=== PATIENT | male | born 1945 | race Caucasian/White ===

== ENCOUNTER 2016-12-06 06:58 | Inpatient (IN) | payer OTHER ==
[~2016-12-06 06:58] MED LIST: ACETAMINOPHEN 325 MG TAB PO ONE; CEFAZOLIN 2 GM/DEXTR 100 ML IV ONE; CHLORHEXIDINE GLUC HIBICLENS 118 ML BTL TP ONE; DEXAMETHASONE 10 MG/ML VIAL IVP ONE; FAMOTIDINE 20 MG TAB PO ONE; ROPI/epiNEPH/KETOROLAC JOINT COCKTAIL IU ONE; TRANEXAMIC ACID 3,000 MG in NS 50 ML IRR ONE
[2016-12-06] MEDS ORDERED: LIDOCAINE 1% 2 ML INJ ONE (07:21)
[2016-12-06] MEDS ORDERED: TRANEXAMIC ACID 3,000 MG/50 ML BAG IRR ONE (08:00)
[2016-12-06] MEDS ORDERED: DEXAMETHASONE 4 MG/ML VIAL ONE (08:00)
[2016-12-06] MEDS ORDERED: DEXAMETHASONE 4 MG/ML VIAL IVP ONE (08:00)
[2016-12-06] MEDS ORDERED: VANCOMYCIN 1 GM VIAL IV ONE (08:00)
[2016-12-06] MEDS ORDERED: SKIN ADHESIVE (DERMABOND) 1 EACH TP ONE (08:00)
[2016-12-06] MEDS ORDERED: LR 1,000 ML IV ONE (08:11)
[2016-12-06] MEDS ORDERED: LIDOCAINE 1% 5 ML SDV ID PRN (08:11)
[2016-12-06] MEDS ORDERED: MIDAZOLAM 2 MG/2 ML VIAL ONE (09:00)
[2016-12-06] MEDS ORDERED: PROPOFOL/EMULSION 500 MG/50 ML BOTTLE IV ONE (09:06)
[2016-12-06] MEDS ORDERED: LIDOCAINE 2% 5 ML SDV ONE (09:07)
[2016-12-06] MEDS ORDERED: PHARMACY PAIN CONSULT 1 EA MISC PRN (09:21)
[2016-12-06] MEDS ORDERED: POLYETHYLENE GLYCOL 3350 17 GM PKT PO PRN (09:21)
[2016-12-06] MEDS ORDERED: TEMAZEPAM 15 MG CAP PO PRN (09:21)
[2016-12-06] MEDS ORDERED: ONDANSETRON 4 MG/2 ML VIAL IVP PRN (09:21)
[2016-12-06] MEDS ORDERED: LACTULOSE 20 GM/30 ML UDCUP PO PRN (09:21)
[2016-12-06] MEDS ORDERED: MAGNESIUM HYDROXIDE 30 ML UDCUP PO PRN (09:21)
[2016-12-06] MEDS ORDERED: BISACODYL 10 MG SUPP PR PRN (09:21)
[2016-12-06] MEDS ORDERED: ONDANSETRON DISINTEGRATING 4 MG TAB PO PRN (09:21)
[2016-12-06] MEDS ORDERED: METOCLOPRAMIDE 10 MG/2 ML VIAL IVP PRN (09:21)
[2016-12-06] MEDS ORDERED: CYCLOBENZAPRINE 10 MG TAB PO PRN (09:21)
[2016-12-06] MEDS ORDERED: PROMETHAZINE HCL 25 MG SUPPR PR PRN (09:21)
[2016-12-06] MEDS ORDERED: DIPHENOXYLATE/ATROPINE LOMOTIL 1 TAB PO PRN (09:21)
[2016-12-06] MEDS ORDERED: diphenhydrAMINE 25 MG CAP PO PRN (09:21)
[2016-12-06] MEDS ORDERED: PREDNISOLONE ACET 0.12% EACHEYE PRN (09:23)
[2016-12-06] MEDS ORDERED: LORazepam 1 MG TAB PO PRN (09:23)
[2016-12-06] MEDS ORDERED: Fluticasone Nasal [Flonase Nasal Spray] 1 SPRAYS EACHNARE PRN (09:23)
[2016-12-06] MEDS ORDERED: LR 1,000 ML IV SCH (09:30)
[2016-12-06] MEDS ORDERED: ROPIVACAINE HCL 150 MG/30 ML INJ ONE (09:51)
--- NOTE | 2016-12-06 10:29 | POSTOPPROG ---
Post Op Note Date of Operation: 12/06/16 Surgeon: Andrew Murray Japanese Interpreter: ivanna murray Anesthesiologist: dr. whaley Anesthesia: Spinal, Other (Specify) (adductor canal block) Pre-op Diagnosis: right knee OA Post-op Diagnosis: same Indication: right knee pain due to OA that failed conservative measures Procedure: R TKA Findings: severe knee OA Inf/Abcess present in the surg proc area at time of surgery?: No EBL: 50-100
[2016-12-06] MEDS: ACETAMINOPHEN 325 MG TAB PO SCH ×3 (14:44→23:50)
[2016-12-06] MEDS: oxyCODONE IR 5 MG TAB PO PRN (15:54)
[2016-12-06] MEDS: ceFAZolin 2 GM/DEXTROSE 100 ML IV SCH ×2 (16:39→23:50)
[2016-12-06] MEDS: metFORMIN HCL 500 MG TAB PO SCH (18:32)
[2016-12-06] MEDS: FAMOTIDINE 20 MG TAB PO SCH (20:28)
[2016-12-06] MEDS: SENNOSIDES/DOCUSATE SODIUM TAB PO SCH (20:28)
[2016-12-06] MEDS: NORTRIPTYLINE HCL 25 MG CAP PO SCH (20:28)
[2016-12-06] MEDS: ASPIRIN 325 MG TAB PO SCH (20:28)
[2016-12-06] MEDS ORDERED: ATORVASTATIN CALCIUM 40 MG TAB PO SCH (21:00)
[2016-12-07] MEDS: ACETAMINOPHEN 325 MG TAB PO SCH (05:04)
[2016-12-07] MEDS: oxyCODONE IR 5 MG TAB PO PRN ×3 (05:04→12:05)
[2016-12-07 05:36] LABS: HEMATOCRIT 36.1 % (40.0-51.0); HEMOGLOBIN 12.1 g/dL (13.7-17.5)
[2016-12-07 07:20] VITALS: BP 128/72; PULSE 80; RESP 14; TEMP 97.9; O2SAT 96
[2016-12-07] MEDS: SENNOSIDES/DOCUSATE SODIUM TAB PO SCH (08:00)
[2016-12-07] MEDS: ASPIRIN 325 MG TAB PO SCH (08:01)
[2016-12-07] MEDS: FAMOTIDINE 20 MG TAB PO SCH (08:01)
[2016-12-07] MEDS: metFORMIN HCL 500 MG TAB PO SCH (08:01)
[2016-12-07] MEDS ORDERED: PANTOPRAZOLE SODIUM 40 MG TAB PO SCH (09:00)
[2016-12-07] MEDS: NORTRIPTYLINE HCL 25 MG CAP PO SCH (09:11)
--- NOTE | 2016-12-07 09:57 | SOAPPROG ---
SOAP Progress Note Assessment/Plan: Assessment: is doing well POD 1 s/p R TKA 1. Pain management: pain is well controlled on oral pain meds 2. Anemia: level is expected initially postop. Asymptomatic, continue to monitor 3. VTE prophylaxis: Recommend aspirin daily. Cont SCDs and TEDs 4. D/c planning: d/c to home today most likely pending release from PT. Plan: 12/07/16 09:56 Objective: Vital Signs Temp Pulse Resp BP Pulse Ox 36.6 C 80 14 128/72 H 96 12/07/16 07:18 12/07/16 07:18 12/07/16 07:18 12/07/16 07:18 12/07/16 07:18 Laboratory Results 12/07/16 05:02 12/06/16 12/07/16 12/08/16 05:59 05:59 05:59 Intake Total 1675 Output Total 780 Balance 895 ICD10 Worksheet Patient Problems: Problems Problem Status Onset Primary localized osteoarthritis of right knee Acute Primary localized osteoarthritis of left knee Acute
--- NOTE | 2016-12-07 15:41 | GOP ---
[f rep st] OPERATIVE REPORT DATE OF OPERATION: 12/06/2016 SURGEON: Neli Morris MD [employer] OPERATOR: MARIO Pérez ANESTHESIA: Spinal. PREOPERATIVE DIAGNOSIS: Right knee osteoarthritis. POSTOPERATIVE DIAGNOSIS: Right knee osteoarthritis. PROCEDURE PERFORMED: Right total knee arthroplasty. FINDINGS: ESTIMATED BLOOD LOSS: 30 cc. INDICATIONS: This is a 71-year-old male with severe and progressive pain and deformity of the right knee unresponsive to conservative care. Risks and benefits of the surgical intervention were explai jean-pierre in detail. DESCRIPTION OF PROCEDURE: The patient was brought to the operative room and placed on the table in the supine position. Spinal anesthesia was induced without difficulty. A pneumatic tourniquet was ap plied about the right proximal thigh, and the leg was prepped and draped in a sterile fashion. The l eg fernandez was applied. After exsanguination by elevation the tourniquet was inflated to 275 mmHg. Incision was made anterior medial from the tibial tuberosity to a point 2 cm proximal to the superio r pole of the patella. Medial parapatellar arthrotomy was carried out from the superior pole of the patella and posteriorly in line with the fibers of the Type 2 VMO. The medial collateral ligament wa s elevated and the infrapatellar fat pad was resected. The patella was everted and the articular surface was excised. A 35 mm patellar button was placed. T he distal femoral guide hole was drilled and the 6 degree alignment nate was placed. A 10 mm distal f emoral cut was made without difficulty. Attention was turned to the tibia and a standard 9 mm cut based on the lateral tibial condyle was pe rformed. The tibial articular surface was excised without difficulty. Attention was turned back to the femur and a size 5 Triathlon femoral cutting block was positioned. Anterior, posterior, and chamfer cuts were made, followed by the intercondylar box cut. The knee was extended and the remnants of the medial and lateral meniscus were excised. The posterio r capsule was injected with ropivacaine, epinephrine and Toradol. A size 5 MIS mini-keel tibial tray was positioned. Trial reduction was then carried out. There was excellent range of motion, alignmen t, and stability using the 9 mm polyethylene. All trials were then removed. The joint was thoroughly irrigated and carefully dried. Two packages o f cement and 2 grams of vancomycin were mixed in the vacuum mixer and placed on the fixation surface s of all surfaces of the components. The components were implanted and all excess cement was thoroug hly removed. The permanent 9 mm polyethylene was placed without difficulty. The tourniquet was deflated and all bleeders were coagulated. The wound was thoroughly irrigated and closed using interrupted sutures of 2-0 Vicryl for the joint capsule. The subcu was closed with 3-0 Vicryl and the skin with 4-0 Monocryl. Dermabond and Steri-Strips were applied followed by a compre ssive dressing. The patient was then moved from the operating room to the recovery room in good cond ition, having tolerated the procedure well. PATHOLOGY: Severe medial and patellofemoral osteoarthritis. /[id number]/MODL
== END 2016-12-07 12:28 | disposition home or self-care (01) | DRG 470 ==
LOC: F3N 06:58
PROVIDERS: ADMIT Orthopaedic Surgery; ATTEND Orthopaedic Surgery
PROC: 0SRC0J9 Replacement of Right Knee Joint with Synthetic Substitute, Cemented, Open Approach (ICD-10-PCS; principal; 2016-12-06 09:15)
DX: M17.11 Unilateral primary osteoarthritis, right knee (principal); K21.9 Gastro-esophageal reflux disease without esophagitis; E11.9 Type 2 diabetes mellitus without complications
CPT/HCPCS: 97116-GP; 97161-GP; 97165-GO; C1713; G8978-GP-CJ; G8979-GP-CI; G8980-GP-CI; G8987-GO-CI; G8988-GO-CI; G8989-GO-CI; J0171; J0690; J1100; J1885; J2250; J2704; J2795; J3370

== ENCOUNTER → 2017-11-08 | Outpatient (CLI) | payer OTHER | LOC: BHFA 14:00 | PROVIDERS: ATTEND Internal Medicine Cardiovascular Disease | DX: R06.02 Shortness of breath (principal) | CPT/HCPCS: 78452; 93017; A9500; J2785 ==

== ENCOUNTER → 2017-12-07 | Outpatient (CLI) | payer OTHER | LOC: BHFA 10:45 | PROVIDERS: ATTEND Internal Medicine Cardiovascular Disease | DX: R06.02 Shortness of breath (principal) ==

== ENCOUNTER → 2018-08-15 | Outpatient (CLI) | payer OTHER | LOC: FIMAGING 06:53 | PROVIDERS: ATTEND Family Medicine Geriatric Medicine | DX: I70.0 Atherosclerosis of aorta (principal) | CPT/HCPCS: 84402-90; G0472 ==